=== PATIENT | female | born 1965 | race Caucasian/White ===

== ENCOUNTER 2017-06-08 16:24 | Inpatient (IN) | payer OTHER ==
[2017-06-08 17:39] VITALS: BMI 32.9
--- NOTE | 2017-06-08 18:37 | HP ---
COWS - Scale Resting Pulse: 1= [place] 81-100 Sweatin=Flushed/Facial Moisture Restless Observation: 3= Extraneous Movement Pupil Size: 1= Pupils >than Normal Bone or Joint Aches: 1= Mild Discomfort Runny Nose/ Eye Tearin= Nasal Congestion GI Upset > 30mins: 2= Nausea/Diarrhea Tremor Observation: 2= Slight Tremor Visible Yawning Observation: 1= 1-2x During Session Anxiety or Irritability: 2=Irritable/Anxious Goose Flesh Skin: 3=Piloerection COWS Score: 19 Admission ROS S - HPI Chief Complaint: Withdrawal symptoms Allergies/Adverse Reactions: Allergies Allergy/AdvReac Type Severity Reaction Status Date / Time No Known Allergies Allergy Verified 06/08/17 13:59 History of Present Illness: 51 y.o. woman with a history of heroin and marijuana dependence is here seeking detox. She reports she has not sought rehab or detox services recently. Reports her longest period clean has been 10 years. Exam Limitations: No Limitations - Ebola screening Have you traveled outside of the country in the last 21 days: No Have you had contact with anyone from an Ebola affected area: No Have you been sick,other than usual withdrawal symptoms: No Do you have a fever: No - Review of Systems Constitutional: Chills, Diaphoresis, Loss of Appetite, Changes in sleep, Unintentional Wgt. Loss EENT: reports: Nose Congestion Respiratory: reports: No Symptoms reported Cardiac: reports: No Symptoms Reported GI: reports: Diarrhea, Nausea, Poor Appetite, Vomiting, Abdominal cramping : reports: No Symptoms Reported Musculoskeletal: reports: Back Pain, Joint Pain, Neck Pain Integumentary: reports: No Symptoms Reported Neuro: reports: No Symptoms reported Endocrine: reports: No Symptoms Reported Hematology: reports: Anemia (CINTHYA) Psychiatric: reports: Orientated x3, Anxious, Depressed Other Systems: Reviewed and Negative Patient History - Patient Medical History Hx Anemia: Yes (HX OF CINTHYA ) Hx Asthma: No Hx Chronic Obstructive Pulmonary Disease (COPD): No Hx Cancer: No Hx Cardiac Disorders: No Hx Congestive Heart Failure: No Hx Hypertension: No Hx Hypercholesterolemia: No Hx Pacemaker: No HX Cerebrovascular Accident: No Hx Seizures: No Hx Dementia: No Hx Diabetes: No Hx Gastrointestinal Disorders: No Hx Liver Disease: No Hx Genitourinary Disorders: No Hx Sexually Transmitted Disorders: No Hx Renal Disease (ESRD): No Hx Thyroid Disease: No Hx Human Immunodeficiency Virus (HIV): No Hx Hepatitis C: Yes Hx Depression: Yes Hx Suicide Attempt: No Hx Bipolar Disorder: No Hx Schizophrenia: No - Patient Surgical History Past Surgical History: Yes Hx Neurologic Surgery: No Hx Cataract Extraction: No Hx Cardiac Surgery: No Hx Lung Surgery: No Hx Breast Surgery: No Hx Breast Biopsy: No Hx Abdominal Surgery: Yes Hx Appendectomy: No Hx Cholecystectomy: No Hx Genitourinary Surgery: No Hx Section: No Hx Orthopedic Surgery: Yes (2008:RT LE FX REPAIR; 2016: RT KNEE REPLACEMENT; 2004:CERVIAL SP FUSION ) Anesthesia Reaction: No - PPD History Previous Implant?: Yes Documented Results: Negative w/o proof Implanted On Prior [facility] Admission?: Yes PPD to be Administered?: Yes - Reproductive History Patient is a Female of Child Bearing Age (11 -55 yrs old): Yes Last Menstrual Period: 06/10/15 Patient : No - Smoking Cessation Smoking history: Current every day smoker Have you smoked in the past 12 months: Yes Aproximately how many cigarettes per day: 20 Hx Chewing Tobacco Use: No Initiated information on smoking cessation: Yes 'Breaking Loose' booklet given: 06/08/17 - Substance & Tx. History Hx Alcohol Use: No Hx Substance Use: Yes Substance Use Type: Heroin, Marijuana Hx Substance Use Treatment: Yes (DETOX AND REHAB OVER 10 YEARS AGO ) - Substances Abused Heroin Route: Injection Frequency: Daily Amount used: 10 bags Age of first use: 18 Date of Last Use: 06/08/17 Marijuana/Hashish Route: Smoking Frequency: Daily Amount used: 1 bags Age of first use: 16 Date of Last Use: 06/08/17 Family Disease History - Family Disease History Family Disease History: Diabetes: Mother (CERVIAL CA), Heart Disease: Brother ( LYMPHOMA-DECEAESD ), CA: Brother, Respiratory: Father (LEUKEMIA- ) Admission Physical Exam S - Vital Signs Vital Signs: Vital Signs - 24 hr 06/08/17 17:16 Temperature 97.0 F L Pulse Rate 82 Respiratory 18 Rate Blood Pressure 101/65 - Physical General Appearance: Yes: Disheveled, Anxious HEENTM: Yes: Hearing grossly Normal, Normal ENT Inspection, Normocephalic, Normal Voice Respiratory: Yes: Chest Non-Tender, Lungs Clear, Normal Breath Sounds, No Respiratory Distress, No Accessory Muscle Use Breast: Yes: Breast Exam Deferred Cardiology: Yes: Regular Rhythm, Regular Rate Abdominal: Yes: Non Tender, Flat Genitourinary: Yes: Burning (U/A PENDING) Back: Yes: Normal Inspection Musculoskeletal: Yes: Back pain, Joint Stiffness, Muscle Pain, Other (UNSTEADY GAIT) Extremities: Yes: Normal Inspection, Normal Range of Motion, Non-Tender Neurological: Yes: 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 NML intact, Fully Oriented, Alert, Motor Strength 5/5, Normal Mood/Affect, Normal Response Integumentary: Yes: Normal Color, Dry, Warm Lymphatic: Yes: Within Normal Limits - Diagnostic (1) Uncomplicated opioid dependence Current Visit: Yes Status: Chronic (2) Cannabis dependence, uncomplicated Current Visit: Yes Status: Chronic (3) Osteoarthritis Current Visit: Yes Status: Chronic (4) Unsteady gait Current Visit: Yes Status: Chronic Cleared for Admission [facility] - Detox or Rehab [facility] Level of Care: Medically Managed Detox Regimen/Protocol: Methadone [facility] Breath Alcohol Content Breath Alcohol Content: 0 Urine Pregancy Test - Result Urine Test Results: Negative- NO Line Present Urine Drug Screen - Results Drug Screen Negative: No Urine Drug Screen Results: THC-Marijuana, OPI-Opiates, BZO-Benzodiazepines, MTD- Methadone, TCA-Tricyclic Antidepress, OXY-Oxycodone
[2017-06-08] MEDS ORDERED: MAGNESIUM CITRATE 300 ML BOTTLE PO PRN (18:53)
[2017-06-08] MEDS ORDERED: MAGNESIUM HYDROX 2400MG/30ML ORAL SUSPENSION 30 ML CUP PO PRN (18:53)
[2017-06-08] MEDS ORDERED: LOPERAMIDE HCL 2 MG CAPSULE PO PRN (18:53)
[2017-06-08] MEDS ORDERED: ACETAMINOPHEN 325 MG TABLET (FP) PO PRN (18:53)
[2017-06-08] MEDS ORDERED: METHADONE HCL 10 MG TABLET (FOR DETOX USE ONLY) PO ONE ×2 (18:53→23:00)
[2017-06-08] MEDS ORDERED: NICOTINE POLACRILEX 2 MG GUM BUC PRN (18:53)
[2017-06-08] MEDS ORDERED: diphenhydrAMINE HCL 50 MG CAPSULE PO PRN (18:53)
[2017-06-08] MEDS ORDERED: hydrOXYzine PAMOATE 50 MG CAPSULE (FP) PO PRN (18:53)
[2017-06-08] MEDS ORDERED: P-EPHED 60MG/TRIPROLIDI 2.5MG TABLET PO PRN (18:53)
[2017-06-08] MEDS ORDERED: MENTHOL/PHENOL 1 EACH UD MM PRN (18:53)
[2017-06-08] MEDS ORDERED: guaiFENesin/D-METHORPHAN HB 10 ML UNIT-DOSE CUPS PO PRN (18:53)
[2017-06-08] MEDS ORDERED: MAG HYDROX/AL HYDROX/SIMETH 30 ML UNIT-DOSE CUP PO PRN (18:53)
[2017-06-08] MEDS: diazePAM 5 MG TABLET PO PRN (19:30)
[2017-06-08] MEDS: THIAMINE HCL 100 MG TABLET (FP) PO SCH (22:05)
[2017-06-08 23:29] LABS: URINE APPEARANCE SLCLOUDY; URINE BILIRUBIN NEGATIVE (NEGATIVE); URINE BLOOD NEGATIVE (NEGATIVE); URINE COLOR YELLOW; URINE GLUCOSE (UA) NEGATIVE (NEGATIVE); URINE KETONE NEGATIVE (NEGATIVE); URINE LEUK ESTERASE NEGATIVE (NEGATIVE); URINE NITRITE NEGATIVE (NEGATIVE); URINE UROBILINOGEN NEGATIVE mg/dL (0.2-1.0)
[2017-06-08 23:30] LABS: URINE PROTEIN 1+ (NEGATIVE)
[2017-06-09 00:57] LABS: URINE BACTERIA RARE /hpf (NONE SEEN); URINE HYALINE CAST 2 /lpf; URINE MUCUS MODERATE; URINE RBC <1 /hpf (0-3); URINE WBC 2 /hpf (3-5)
[2017-06-09] MEDS: IBUPROFEN 400 MG TABLET (FP) PO PRN (08:24)
--- NOTE | 2017-06-09 09:11 | CONSULT ---
[facility] Psychiatric Consult - Data Date of interview: 06/09/17 Admission source: This is 51 years old female with Identifying data: This is 51 years old female with no psychiatric hospitalization history intoxicated with: Op[ioids, Cannabis and Nicotine Substance Abuse History: - Smoking Cessation. Smoking history: Current every day smoker. Have you smoked in the past 12 months: Yes. Aproximately how many cigarettes per day: 20. Hx Chewing Tobacco Use: No. Initiated information on smoking cessation: Yes. 'Breaking Loose' booklet given: 06/08/17. - Substance & Tx. History. Hx Alcohol Use: No. Hx Substance Use: Yes. Substance Use Type : Heroin, Marijuana. Hx Substance Use Treatment: Yes (DETOX AND REHAB OVER 10 YEARS AGO ). - Substances Abused. Heroin. Route: Injection. Frequency: Daily. Amount used: 10 bags. Age of first use: 18. Date of Last Use: . Marijuana/Hashish. Route: Smoking. Frequency: Daily. Amount used: 1 bags. Age of first use: 16. Date of Last Use: 06/08/17 Medical History: Osteoarthritis Psychiatric History: Patient reports history of mdepression and anxiety, preoccupied with insomnia, reports taking Seroquel 150mg po qhs prior to admission with good response Physical/Sexual Abuse/Trauma History: Denies Additional Comment: Seroquel 150mg po qhs Mental Status Exam - Mental Status Exam Alert and Oriented to: Person Cognitive Function: Fair Patient Appearance: Unkempt Mood: Anxious Affect: Flat Patient Behavior: Cooperative Speech Pattern: Appropriate Voice Loudness: Normal Thought Process: Goal Oriented Thought Disorder: Being Controlled Hallucinations: Denies Suicidal Ideation: Denies Homicidal Ideation: Denies Insight/Judgement: Fair Sleep: Difficulty falling asleep Appetite: Weight gain Muscle strength/Tone: Normal Gait/Station: Deferred Additional Comments: Seroquel 150mg po qhs Psychiatric Findings - Problem List ([place] 1, 2,3) (1) Cannabis dependence, uncomplicated Current Visit: Yes Status: Chronic (2) Uncomplicated opioid dependence Current Visit: Yes Status: Chronic (3) Unsteady gait Current Visit: Yes Status: Chronic (4) Heroin abuse Current Visit: No Status: Acute (5) Opioid dependence with withdrawal Current Visit: No Status: Acute (6) Drug-induced mood disorder Current Visit: Yes Status: Acute - Initial Treatment Plan Initial Treatment Plan: Seroquel 150mg po qhs
--- NOTE | 2017-06-09 09:19 | PN ---
BHS COWS - Scale Resting Pulse: 0= [place] 80 or Below Sweatin=Flushed/Facial Moisture Restless Observation: 3= Extraneous Movement Pupil Size: 1= Pupils >than Normal Bone or Joint Aches: 2= Severe Diffuse Aches Runny Nose/ Eye Tearin= Runny Nose/Eyes GI Upset > 30mins: 2= Nausea/Diarrhea Tremor Observation of Outstretched Hands: 2= Slight Tremor Visible Yawning Observation: 1= 1-2x During Session Anxiety or Irritability: 2=Irritable/Anxious Goose Flesh Skin: 0=Smooth Skin COWS Score: 17 BHS Progress Note (SOAP) Subjective: alert,irritable,anxious,interrupted sleep,tremor,pain in the body and back Objective: 06/09/17 09:17 Vital Signs Temperature 98.2 F 06/09/17 06:22 Pulse Rate 71 06/09/17 06:22 Respiratory Rate 16 06/09/17 06:22 Blood Pressure 103/62 06/09/17 06:22 O2 Sat by Pulse Oximetry (%) ekg nsr no chest pain,no sob,no dizziness 06/09/17 09:18 06/09/17 09:28 labs pending Assessment: 06/09/17 09:18 withdrawal symptom Plan: continue detox
[2017-06-09] MEDS ORDERED: METHADONE HCL 10 MG TABLET (FOR DETOX USE ONLY) PO ONE (10:00)
[2017-06-09] MEDS: NICOTINE 21 MG/24 HOURS TOPICAL PATCH TD SCH (10:09)
[2017-06-09] MEDS: PRENATAL VITAMINS W/ FOLIC ACID TABLET (FP) PO SCH (10:09)
[2017-06-09] MEDS: diazePAM 5 MG TABLET PO PRN ×2 (10:10→22:03)
--- NOTE | 2017-06-09 12:50 | EKG ---
Test Reason : Blood Pressure : / mmHG Vent. Rate : 089 BPM Atrial Rate : 089 BPM P-R Int : 152 ms QRS Dur : 078 ms QT Int : 384 ms P-R-T Axes : 060 -05 023 degrees QTc Int : 467 ms NORMAL SINUS RHYTHM LOW VOLTAGE QRS BORDERLINE ECG NO PREVIOUS ECGS AVAILABLE Confirmed by LUPE PARTIDA, GIA ([id number]) on 06/09/2017 12:49:57 PM Referred By: SADIQ Ann Confirmed By:GIA ANDRADE MD
[2017-06-09] MEDS: QUEtiapine FUMARATE 50 MG TABLET PO SCH (22:04)
[2017-06-09] MEDS: THIAMINE HCL 100 MG TABLET (FP) PO SCH (22:05)
--- NOTE | 2017-06-10 09:35 | PN ---
BHS COWS - Scale Resting Pulse: 2= [place] 101-120 Sweatin= Chills/Flushing Restless Observation: 3= Extraneous Movement Pupil Size: 1= Pupils >than Normal Bone or Joint Aches: 2= Severe Diffuse Aches Runny Nose/ Eye Tearin= Runny Nose/Eyes GI Upset > 30mins: 2= Nausea/Diarrhea Tremor Observation of Outstretched Hands: 2= Slight Tremor Visible Yawning Observation: 1= 1-2x During Session Anxiety or Irritability: 2=Irritable/Anxious Goose Flesh Skin: 0=Smooth Skin COWS Score: 18 BHS Progress Note (SOAP) Subjective: ALERT,IRRITABLE,ANXIOUS,INTERRUPTED SLEEP,TREMOR,PAIN IN THE BODY AND BACK Objective: 06/10/17 09:30 Vital Signs Temperature 97 F L 06/10/17 09:21 Pulse Rate 107 H 06/10/17 09:21 Respiratory Rate 18 06/10/17 09:21 Blood Pressure 128/75 06/10/17 09:21 O2 Sat by Pulse Oximetry (%) 06/10/17 09:30 Laboratory Last Values Urine Color Yellow 06/08/17 20:48 Urine Appearance Slcloudy 06/08/17 20:48 Urine pH 5.0 (5.0-8.0) 06/08/17 20:48 Ur Specific [place] >= 1.030 (1.005-1.025) H 06/08/17 20:48 Urine Protein 1+ (NEGATIVE) H 06/08/17 20:48 Urine Glucose (UA) Negative (NEGATIVE) 06/08/17 20:48 Urine Ketones Negative (NEGATIVE) 06/08/17 20:48 Urine Blood Negative (NEGATIVE) 06/08/17 20:48 Urine Nitrite Negative (NEGATIVE) 06/08/17 20:48 Urine Bilirubin Negative (NEGATIVE) 06/08/17 20:48 Urine Urobilinogen Negative mg/dL (0.2-1.0) 06/08/17 20:48 Ur Leukocyte Esterase Negative (NEGATIVE) 06/08/17 20:48 Urine RBC <1 /hpf (0-3) 06/08/17 20:48 Urine WBC 2 /hpf (3-5) 06/08/17 20:48 Ur Epithelial Cells Few /hpf (FEW) 06/08/17 20:48 Urine Bacteria Rare /hpf (NONE SEEN) 06/08/17 20:48 Hyaline Casts 2 /lpf 06/08/17 20:48 Urine Mucus Moderate 06/08/17 20:48 06/10/17 09:31 Assessment: 06/10/17 09:31 WITHDRAWAL SYMPTOM Plan: CONTINUE DETOX
[2017-06-10] MEDS ORDERED: METHADONE HCL 5 MG TABLET (FOR DETOX USE ONLY) PO ONE (10:00)
[2017-06-10] MEDS: PRENATAL VITAMINS W/ FOLIC ACID TABLET (FP) PO SCH (10:09)
[2017-06-10] MEDS: NICOTINE 21 MG/24 HOURS TOPICAL PATCH TD SCH (10:09)
[2017-06-10] MEDS: diazePAM 5 MG TABLET PO PRN ×2 (10:12→22:16)
[2017-06-10] MEDS: IBUPROFEN 400 MG TABLET (FP) PO PRN ×2 (11:35→20:46)
[2017-06-10] MEDS: QUEtiapine FUMARATE 50 MG TABLET PO SCH (22:13)
[2017-06-10] MEDS: THIAMINE HCL 100 MG TABLET (FP) PO SCH (22:13)
--- NOTE | 2017-06-11 08:59 | PN ---
S Progress Note (SOAP) Subjective: alert,no complaining Objective: 06/11/17 08:59 Vital Signs Temperature 97.1 F L 06/11/17 06:18 Pulse Rate 47 L 06/11/17 06:18 Respiratory Rate 16 06/11/17 06:18 Blood Pressure 108/73 06/11/17 08:31 O2 Sat by Pulse Oximetry (%) Assessment: 06/11/17 08:59 patient is stable,no withdrawal symptom 06/11/17 09:02 Plan: discharge today,follow up with after care program as arrangement,patient did not want any blood test due to difficulty unable to be obtained by telephone sex worker
[2017-06-11] MEDS ORDERED: METHADONE HCL 10 MG TABLET (FOR DETOX USE ONLY) PO ONE (09:01)
--- NOTE | 2017-06-11 09:09 | DS ---
[facility] Detox Discharge Summary Admission Date: 06/08/17 Discharge Date: 06/11/17 - History Present History: Cannabis Dependence, Opioid Dependence Additional Comments: follow up with after care program as arrangement Pertinent Past History: osteoarthritis - Physical Exam Results Vital Signs: Vital Signs Temperature 97.1 F L 06/11/17 06:18 Pulse Rate 47 L 06/11/17 06:18 Respiratory Rate 16 06/11/17 06:18 Blood Pressure 108/73 06/11/17 08:31 O2 Sat by Pulse Oximetry (%) Pertinent Admission Physical Exam Findings: withdrawal symptom - Treatment Hospital Course: Detox Protocol Followed, Detoxed Safely, Responded well, Discharged Condition Good Patient has Accepted a Rehab Referral to: declined - Medication Discharge Medications: Ambulatory Orders Diazepam 10 mg PO AM 06/08/17 Diazepam 20 mg PO HS 06/08/17 Ibuprofen [Motrin -] 800 mg PO PRN PRN 06/08/17 Quetiapine Fumarate [Seroquel] 150 mg PO HS 06/08/17 Quetiapine Fumarate [Seroquel] 150 mg PO HS #30 tab 06/09/17 - Diagnosis (1) Cannabis dependence, uncomplicated Current Visit: Yes Status: Chronic (2) Osteoarthritis Current Visit: Yes Status: Chronic (3) Uncomplicated opioid dependence Current Visit: Yes Status: Chronic (4) Opioid dependence with withdrawal Current Visit: No Status: Acute - AMA Did Patient Leave Against Medical Advice: No
[2017-06-11] MEDS: PRENATAL VITAMINS W/ FOLIC ACID TABLET (FP) PO SCH (09:21)
[2017-06-11] MEDS ORDERED: METHADONE HCL 5 MG TABLET (FOR DETOX USE ONLY) PO ONE (10:00)
[2017-06-11 10:36] VITALS: BP 106/74; PULSE 116; TEMP 97.3
[2017-06-12] MEDS ORDERED: METHADONE HCL 10 MG TABLET (FOR DETOX USE ONLY) PO ONE (10:00)
[2017-06-13] MEDS ORDERED: METHADONE HCL 5 MG TABLET (FOR DETOX USE ONLY) PO ONE (06:00)
== END 2017-06-11 09:35 | disposition home or self-care (01) | DRG 897 ==
LOC: YASAS 16:24 → Y6N 18:02
PROVIDERS: ADMIT Internal Medicine; ATTEND Surgery
PROC: HZ2ZZZZ Detoxification Services for Substance Abuse Treatment (ICD-10-PCS; principal; 2017-06-08)
DX: F11.23 Opioid dependence with withdrawal (principal); F12.20 Cannabis dependence, uncomplicated; F17.210 Nicotine dependence, cigarettes, uncomplicated; F19.24 Other psychoactive substance dependence with psychoactive substance-induced mood disorder; M19.90 Unspecified osteoarthritis, unspecified site; R26.81 Unsteadiness on feet; Z86.2 Personal history of diseases of the blood and blood-forming organs and certain disorders involving the immune mechanism; Z96.651 Presence of right artificial knee joint
CPT/HCPCS: 81003; 81015; 93005; 93010; 99282-25

== ENCOUNTER 2017-07-12 13:39 | Inpatient (IN) | payer OTHER ==
[2017-07-12 14:14] VITALS: BMI 31.8
--- NOTE | 2017-07-12 17:35 | HP ---
COWS - Scale Resting Pulse: 4= [place] > 121 Sweatin= Chills/Flushing Restless Observation: 0= Sits Still Pupil Size: 0= Normal to Room Light Bone or Joint Aches: 2= Severe Diffuse Aches Runny Nose/ Eye Tearin= Runny Nose/Eyes GI Upset > 30mins: 3= Vomiting/Diarrhea Tremor Observation: 2= Slight Tremor Visible Yawning Observation: 0= None Anxiety or Irritability: 2=Irritable/Anxious Goose Flesh Skin: 0=Smooth Skin COWS Score: 16 Admission ROS S - HPI Chief Complaint: withdrawal sx Allergies/Adverse Reactions: Allergies Allergy/AdvReac Type Severity Reaction Status Date / Time No Known Allergies Allergy Verified 07/12/17 16:00 History of Present Illness: 51 years old female with long history of opiate nicotine dependence, denies medical issue has anxiety is admitted to detox Exam Limitations: No Limitations - Ebola screening Have you traveled outside of the country in the last 21 days: No (N) Have you had contact with anyone from an Ebola affected area: No Have you been sick,other than usual withdrawal symptoms: No Do you have a fever: No - Review of Systems Constitutional: Changes in sleep, Weight Stable EENT: reports: Dental Problems (upper and lower teeth missing has both dentures) Respiratory: reports: SOB with Exertion Cardiac: reports: No Symptoms Reported GI: reports: Nausea, Poor Fluid Intake, Vomiting, Indigestion, Abdominal cramping : reports: No Symptoms Reported Integumentary: reports: Change in Color (hands) Neuro: reports: Seizure (age 20's cocaine withdrawal related), Tremors Endocrine: reports: No Symptoms Reported Hematology: reports: No Symptoms Reported Psychiatric: reports: Judgement Intact, Orientated x3, Anxious, Depressed Other Systems: Reviewed and Negative Patient History - Patient Medical History Hx Anemia: No (HX OF CINTHYA ) Hx Asthma: No Hx Chronic Obstructive Pulmonary Disease (COPD): No Hx Cancer: No Hx Cardiac Disorders: No Hx Congestive Heart Failure: No Hx Hypertension: No Hx Hypercholesterolemia: No Hx Pacemaker: No HX Cerebrovascular Accident: No Hx Seizures: Yes (age 20's last episode) Hx Dementia: No Hx Diabetes: No Hx Gastrointestinal Disorders: No Hx Liver Disease: No Hx Genitourinary Disorders: No Hx Sexually Transmitted Disorders: No Hx Renal Disease (ESRD): No Hx Thyroid Disease: No Hx Human Immunodeficiency Virus (HIV): No Hx Hepatitis C: Yes Hx Depression: Yes Hx Suicide Attempt: No Hx Bipolar Disorder: No Hx Schizophrenia: No - Patient Surgical History Past Surgical History: Yes Hx Neurologic Surgery: No Hx Cataract Extraction: No Hx Cardiac Surgery: No Hx Lung Surgery: No Hx Breast Surgery: No Hx Breast Biopsy: No Hx Abdominal Surgery: Yes (LACERATED SPLEEN-2008) Hx Appendectomy: No Hx Cholecystectomy: Yes (2012) Hx Genitourinary Surgery: No Hx Section: No Hx Orthopedic Surgery: Yes (2008:RT LE FX REPAIR; 2015: RT KNEE REPLACEMENT; 2004:CERVIAL SP FUSION ) Hx Hysterectomy: No Anesthesia Reaction: No - PPD History Previous Implant?: Yes Documented Results: Positive w/proof Implanted On Prior R Admission?: Yes Date: 06/10/17 PPD to be Administered?: No - Reproductive History Patient is a Female of Child Bearing Age (11 -55 yrs old): Yes Last Menstrual Period: 07/12/14 Patient : No - Smoking Cessation Smoking history: Current every day smoker Have you smoked in the past 12 months: Yes Aproximately how many cigarettes per day: 20 Cigars Per Day: 0 Hx Chewing Tobacco Use: No Initiated information on smoking cessation: Yes 'Breaking Loose' booklet given: 07/12/17 - Substance & Tx. History Hx Alcohol Use: No Hx Substance Use: Yes Substance Use Type: Heroin, Opiates, Tranquilizers Hx Substance Use Treatment: Yes (06/2017 [facility]) - Substances Abused Heroin Route: Injection Frequency: Daily Amount used: 4-5 BAGS Age of first use: 17 Date of Last Use: 07/12/17 Marijuana/Hashish Route: Smoking Frequency: Daily Amount used: $5 Age of first use: 12 Date of Last Use: 07/11/17 Family Disease History - Family Disease History Family Disease History: Diabetes: Mother (CERVIAL CA), Heart Disease: Brother ( LY[place]-DECEAESD ), CA: Brother, Respiratory: Father (LEUKEMIA- ) Admission Physical Exam BHS - Vital Signs Vital Signs: Vital Signs - 24 hr 07/12/17 14:10 Temperature 100 F H Pulse Rate 121 H Respiratory 20 Rate Blood Pressure 110/61 - Physical General Appearance: Yes: Appropriately Dressed, Moderate Distress, Obese, Tremorous, Irritable, Sweating, Anxious HEENTM: Yes: Hearing grossly Normal, Normal ENT Inspection, Normocephalic, Normal Voice Respiratory: Yes: Chest Non-Tender, Lungs Clear, Normal Breath Sounds, No Respiratory Distress, No Accessory Muscle Use Neck: Yes: Supple, Trachea in good position Breast: Yes: Breasts Symetrical Cardiology: Yes: Regular Rhythm, S1, S2, Tachycardia Abdominal: Yes: Non Tender, Soft Genitourinary: Yes: Within Normal Limits Back: Yes: Normal Inspection Musculoskeletal: Yes: Gait Steady, Joint swelling (right ankles), Muscle Pain Extremities: Yes: Non-Tender, Tremors, Swelling (right ankles) Neurological: Yes: Fully Oriented, Alert, Normal Response, Depressed Affect Integumentary: Yes: Warm, Track Will Lymphatic: Yes: Within Normal Limits - Diagnostic (1) Opioid dependence with withdrawal Current Visit: Yes Status: Acute (2) Unsteady gait Current Visit: Yes Status: Chronic Comment: 2008 (3) Sedative, hypnotic or anxiolytic dependence, uncomplicated Current Visit: Yes Status: Acute Cleared for Admission [facility] - Detox or Rehab [facility] Level of Care: Medically Managed Detox Regimen/Protocol: Methadone/Valium [facility] Breath Alcohol Content Breath Alcohol Content: 0 Urine Pregancy Test - Result Urine Test Results: Negative- NO Line Present Urine Drug Screen - Results Drug Screen Negative: No Urine Drug Screen Results: THC-Marijuana, OPI-Opiates, BZO-Benzodiazepines, MTD- Methadone, TCA-Tricyclic Antidepress, OXY-Oxycodone
[2017-07-12] MEDS ORDERED: diphenhydrAMINE HCL 50 MG CAPSULE PO PRN (17:48)
[2017-07-12] MEDS ORDERED: MENTHOL/PHENOL 1 EACH UD MM PRN (17:48)
[2017-07-12] MEDS ORDERED: diazePAM 5 MG TABLET PO ONE (17:48)
[2017-07-12] MEDS ORDERED: METHADONE HCL 10 MG TABLET (FOR DETOX USE ONLY) PO ONE ×2 (17:48→23:00)
[2017-07-12] MEDS ORDERED: ACETAMINOPHEN 325 MG TABLET (FP) PO PRN (17:48)
[2017-07-12] MEDS ORDERED: guaiFENesin/D-METHORPHAN HB 10 ML UNIT-DOSE CUPS PO PRN (17:48)
[2017-07-12] MEDS ORDERED: P-EPHED 60MG/TRIPROLIDI 2.5MG TABLET PO PRN (17:48)
[2017-07-12] MEDS ORDERED: MAG HYDROX/AL HYDROX/SIMETH 30 ML UNIT-DOSE CUP PO PRN (17:48)
[2017-07-12] MEDS ORDERED: MAGNESIUM HYDROX 2400MG/30ML ORAL SUSPENSION 30 ML CUP PO PRN (17:48)
[2017-07-12] MEDS ORDERED: NICOTINE POLACRILEX 4 MG GUM BUC PRN (17:48)
[2017-07-12] MEDS ORDERED: LOPERAMIDE HCL 2 MG CAPSULE PO PRN (17:48)
[2017-07-12] MEDS ORDERED: MAGNESIUM CITRATE 300 ML BOTTLE PO PRN (17:48)
[2017-07-12 19:58] LABS: URINE APPEARANCE CLOUDY; URINE BILIRUBIN NEGATIVE (NEGATIVE); URINE BLOOD NEGATIVE (NEGATIVE); URINE COLOR YELLOW; URINE GLUCOSE (UA) NEGATIVE (NEGATIVE); URINE KETONE NEGATIVE (NEGATIVE); URINE NITRITE NEGATIVE (NEGATIVE); URINE UROBILINOGEN NEGATIVE mg/dL (0.2-1.0)
[2017-07-12 19:59] LABS: URINE LEUK ESTERASE 1+ (NEGATIVE); URINE PROTEIN 1+ (NEGATIVE)
[2017-07-12 20:03] LABS: URINE BACTERIA RARE /hpf (NONE SEEN); URINE HYALINE CAST 3 /lpf; URINE MUCUS MANY; URINE RBC <1 /hpf (0-3); URINE WBC 3 /hpf (3-5)
[2017-07-12] MEDS: THIAMINE HCL 100 MG TABLET (FP) PO SCH (22:01)
[2017-07-12] MEDS: diazePAM 5 MG TABLET PO SCH (22:02)
[2017-07-13] MEDS: diazePAM 5 MG TABLET PO SCH ×3 (05:40→22:02)
[2017-07-13] MEDS ORDERED: METHADONE HCL 10 MG TABLET (FOR DETOX USE ONLY) PO SCH (10:00)
[2017-07-13 10:13] LABS: MCH 28.6 pg (25.7-33.7); MCHC 31.8 g/dl (32.0-36.0); MEAN CELL VOLUME 90.1 fl (80-96); PLATELET COUNT 296 K/MM3 (134-434); RDW 15.1 % (11.6-15.6); WHITE BLOOD COUNT 18.6 K/mm3 (4.0-10.0)
[2017-07-13] MEDS: PRENATAL VITAMINS W/ FOLIC ACID TABLET (FP) PO SCH (10:14)
[2017-07-13] MEDS: NICOTINE 21 MG/24 HOURS TOPICAL PATCH TD SCH (10:16)
[2017-07-13] MEDS ORDERED: IBUPROFEN 400 MG TABLET (FP) PO PRN ×2 (10:17→12:23)
[2017-07-13 10:39] LABS: HIV 1 & 2 AB NEGATIVE; HIV 1 AGp24 NEGATIVE
--- NOTE | 2017-07-13 10:47 | PN ---
BHS COWS - Scale Resting Pulse: 1= [place] 81-100 Sweatin=Flushed/Facial Moisture Restless Observation: 1= Difficult to Sit Still Pupil Size: 0= Normal to Room Light Bone or Joint Aches: 1= Mild Discomfort Runny Nose/ Eye Tearin= Runny Nose/Eyes GI Upset > 30mins: 0= None Tremor Observation of Outstretched Hands: 2= Slight Tremor Visible Yawning Observation: 1= 1-2x During Session Anxiety or Irritability: 2=Irritable/Anxious Goose Flesh Skin: 0=Smooth Skin COWS Score: 12 BHS Progress Note (SOAP) Subjective: I coughed up some phlegm with little blood but I smoke so much sweats agitation shakes Objective: 07/13/17 10:48 Vital Signs Temperature 98.1 F 07/13/17 06:00 Pulse Rate 84 07/13/17 06:00 Respiratory Rate 18 07/13/17 06:00 Blood Pressure 106/67 07/13/17 06:00 O2 Sat by Pulse Oximetry (%) Laboratory Tests 07/12/17 07/13/17 07/13/17 16:30 07:00 07:00 WBC 18.6 H RBC 3.89 Hgb 11.1 Hct 35.0 MCV 90.1 MCH 28.6 MCHC 31.8 L RDW 15.1 Plt Count 296 MPV 8.0 Urine Color Yellow Urine Appearance Cloudy Urine pH 5.0 Ur Specific [place] 1.020 Urine Protein 1+ H Urine Glucose (UA) Negative Urine Ketones Negative Urine Blood Negative Urine Nitrite Negative Urine Bilirubin Negative Urine Urobilinogen Negative Ur Leukocyte Esterase 1+ H Urine RBC <1 Urine WBC 3 Ur Epithelial Cells Many Urine Bacteria Rare Hyaline Casts 3 Urine Mucus Many RPR Titer HIV 1&2 Antibody Screen Negative HIV P24 Antigen Negative 07/13/17 07:00 WBC RBC Hgb Hct MCV MCH MCHC RDW Plt Count MPV Urine Color Urine Appearance Urine pH Ur Specific [place] Urine Protein Urine Glucose (UA) Urine Ketones Urine Blood Urine Nitrite Urine Bilirubin Urine Urobilinogen Ur Leukocyte Esterase Urine RBC Urine WBC Ur Epithelial Cells Urine Bacteria Hyaline Casts Urine Mucus RPR Titer Nonreactive HIV 1&2 Antibody Screen HIV P24 Antigen awake/alert ambulating no acute distress labs pending Assessment: 07/13/17 10:58 withdrawal sx Plan: continue detox increase fluids chest x-ray ordered encouraged to stay away any red juices labs pending
[2017-07-13 10:59] LABS: ALBUMIN 2.8 g/dl (3.4-5.0); ANION GAP 7 (8-16); CALCIUM 8.2 mg/dL (8.5-10.1); CO2 27 mmol/L (21-32); CREATININE 1.5 mg/dL (0.55-1.02); GLUCOSE,RANDOM 95 mg/dL (74-106); SGOT/AST 18 U/L (15-37); SGPT/ALT 19 U/L (12-78)
[2017-07-13 11:02] LABS: ALK PHOS 112 U/L (45-117); BILIRUBIN,TOTAL 0.3 mg/dL (0.2-1.0); TOT PROT 6.5 g/dl (6.4-8.2)
[2017-07-13] MEDS: cloNIDine HCL 0.1 MG TABLET PO SCH ×2 (12:00→22:03)
--- NOTE | 2017-07-13 17:03 | CONSULT ---
[facility] Psychiatric Consult - Data Date of interview: 07/13/17 Admission source: [facility] Identifying data: Readmission to [facility] for this 51 y/o female seeking detox treatment on for heroin,benzodiazepine and marihuana dependence.Patient is ,a mother of two,domiciled,unemployed and supported on Disability benefits. Substance Abuse History: Discussed in this interview.Patient confirms this report. Smoking Cessation. Smoking history: Current every day smoker. Have you smoked in the past 12 months: Yes. Aproximately how many cigarettes per day : 20. Cigars Per Day: 0. Hx Chewing Tobacco Use: No. Initiated information on smoking cessation: Yes. 'Breaking Loose' booklet given: 07/12/17. - Substance & Tx. History. Hx Alcohol Use: No. Hx Substance Use: Yes. Substance Use Type: Heroin, Opiates, Tranquilizers. Hx Substance Use Treatment : Yes (06/2017 [facility]). - Substances Abused. Heroin. Route: Injection. Frequency: Daily. Amount used: 4-5 BAGS. Age of first use: 17. Date of Last Use: 07/12/17. Marijuana/Hashish. Route: Smoking. Frequency: Daily. Amount used: $5. Age of first use: 12. Date of Last Use: 07/11/17 Medical History: Significant for multiple co-morbidities : anemia,remote history of seizures,hepatitis C,cervical spine fusion (2004),lower back pain, osteoarthritis,right knee replacement (2015),abdominal surgery (lacerated spleen in 2008),orthosurgery on right leg (hardware in situ) and antecedent of MERSA two years ago. Psychiatric History: No reported history of psychiatric hospitalizations.Patient reports that she is currently under the care of a private psychiatrist in [facility] in the [facility].Diagnosed with MDD and Anxiety Disorder.Prescribed seroquel 150 mg/hs.No history of suicide attempts. Physical/Sexual Abuse/Trauma History: Patient denies history of sexual abuse. Additional Comment: Urine Drug Screen Results: THC-Marijuana, OPI-Opiates, BZO- Benzodiazepines, MTD-Methadone, TCA-Tricyclic Antidepress, OXY-Oxycodone.Noted. Mental Status Exam - Mental Status Exam Alert and Oriented to: Time, Place, Person Cognitive Function: Good Patient Appearance: Well Groomed Mood: Nervous, Anxious Affect: Mood Congruent Patient Behavior: Appropriate, Cooperative Speech Pattern: Clear, Appropriate Voice Loudness: Normal Thought Process: Intact, Goal Oriented Thought Disorder: Not Present Hallucinations: Denies Suicidal Ideation: Denies Homicidal Ideation: Denies Insight/Judgement: Poor Sleep: Poorly, Difficulty falling asleep Appetite: Fair Gait/Station: Other (ambulates with a limp) Psychiatric Findings - Problem List ([place] 1, 2,3) (1) Opioid dependence with withdrawal Current Visit: Yes Status: Acute (2) Sedative, hypnotic or anxiolytic dependence, uncomplicated Current Visit: Yes Status: Acute (3) Cannabis dependence, uncomplicated Current Visit: Yes Status: Acute (4) Drug-induced mood disorder Current Visit: Yes Status: Acute (5) Unsteady gait Current Visit: Yes Status: Chronic Comment: 2009 (6) Osteoarthritis Current Visit: Yes Status: Chronic Qualifiers: Osteoarthritis location: foot Osteoarthritis type: unspecified Laterality: right Qualified Code(s): M19.071 - Primary osteoarthritis, right ankle and foot (7) Insomnia Current Visit: Yes Status: Acute - Initial Treatment Plan Initial Treatment Plan: Psychoeducation.Detoxification.Seroquel 100 mg po hs ( reduced now : to be titrated later if no oversedation in next 24 hours).Side effects/benefits are discussed with patient.She is in agreement with this careplan.Observation.
--- NOTE | 2017-07-13 18:29 | EKG ---
Test Reason : Blood Pressure : / mmHG Vent. Rate : 089 BPM Atrial Rate : 089 BPM P-R Int : 162 ms QRS Dur : 078 ms QT Int : 388 ms P-R-T Axes : 061 -06 031 degrees QTc Int : 472 ms NORMAL SINUS RHYTHM LOW VOLTAGE QRS BORDERLINE ECG WHEN COMPARED WITH ECG OF 08-JUN-2017 18:36, NO SIGNIFICANT CHANGE WAS FOUND Confirmed by ISRAEL PRESTON MD ([id number]) on 07/13/2017 6:28:35 PM Referred By: Confirmed By:ISRAEL PRESTON MD
[2017-07-13] MEDS: QUEtiapine FUMARATE 100 MG TABLET (FP) PO SCH (22:01)
[2017-07-13] MEDS: THIAMINE HCL 100 MG TABLET (FP) PO SCH (22:02)
--- NOTE | 2017-07-14 09:11 | PN ---
[facility] CIWA - CIWA Score Nausea/Vomitin Muscle Tremors: 4-Moderate,w/Arms Extend Anxiety: 3 Agitation: 4-Moderately Restless Paroxysmal Sweats: 3 Orientation: 0-Oriented Tacttile Disturbances: 0-None Auditory Disturbances: 0-None Visual Disturbances: 0-None Headache: 0-None Present CIWA-Ar Total Score: 17 [facility] COWS - Scale Resting Pulse: 1= [place] 81-100 Sweatin= Chills/Flushing Restless Observation: 1= Difficult to Sit Still Pupil Size: 1= Pupils >than Normal Bone or Joint Aches: 1= Mild Discomfort Runny Nose/ Eye Tearin= Nasal Congestion GI Upset > 30mins: 2= Nausea/Diarrhea Tremor Observation of Outstretched Hands: 1= Tremor [place], Not Seen Yawning Observation: 1= 1-2x During Session Anxiety or Irritability: 2=Irritable/Anxious Goose Flesh Skin: 3=Piloerection COWS Score: 15 [facility] Progress Note (SOAP) Subjective: nausea, sweats, interrupetd sleee, anxiety, tremors, no SOB, yesterday coughed blood tinged sputum, c/o lower abdominal pain thinks she has a UTI was treated for U[facility] month. Objective: 07/14/17 09:08 Vital Signs - 24 hr 07/13/17 07/13/17 07/13/17 10:53 14:18 18:08 Temperature 98.1 F 98.1 F 98.2 F Pulse Rate 88 83 71 Respiratory 18 18 16 Rate Blood Pressure 113/67 129/70 91/43 07/13/17 07/14/17 07/14/17 21:13 00:30 05:46 Temperature 97.9 F 97.7 F Pulse Rate 80 60 Respiratory 18 18 16 Rate Blood Pressure 103/64 96/51 Laboratory Tests 07/12/17 07/13/17 07/13/17 16:30 07:00 07:00 WBC 18.6 H RBC 3.89 Hgb 11.1 Hct 35.0 MCV 90.1 MCH 28.6 MCHC 31.8 L RDW 15.1 Plt Count 296 MPV 8.0 Sodium Potassium Chloride Carbon Dioxide Anion Gap BUN Creatinine Creat Clearance w eGFR Random Glucose Calcium Total Bilirubin AST ALT Alkaline Phosphatase Total Protein Albumin Urine Color Yellow Urine Appearance Cloudy Urine pH 5.0 Ur Specific [place] 1.020 Urine Protein 1+ H Urine Glucose (UA) Negative Urine Ketones Negative Urine Blood Negative Urine Nitrite Negative Urine Bilirubin Negative Urine Urobilinogen Negative Ur Leukocyte Esterase 1+ H Urine RBC <1 Urine WBC 3 Ur Epithelial Cells Many Urine Bacteria Rare Hyaline Casts 3 Urine Mucus Many RPR Titer HIV 1&2 Antibody Screen Negative HIV P24 Antigen Negative 07/13/17 07/13/17 07:00 07:00 WBC RBC Hgb Hct MCV MCH MCHC RDW Plt Count MPV Sodium 142 Potassium 3.7 Chloride 108 H Carbon Dioxide 27 Anion Gap 7 L BUN 15 Creatinine 1.5 H Creat Clearance w eGFR 36.61 Random Glucose 95 Calcium 8.2 L Total Bilirubin 0.3 AST 18 ALT 19 Alkaline Phosphatase 112 Total Protein 6.5 Albumin 2.8 L Urine Color Urine Appearance Urine pH Ur Specific [place] Urine Protein Urine Glucose (UA) Urine Ketones Urine Blood Urine Nitrite Urine Bilirubin Urine Urobilinogen Ur Leukocyte Esterase Urine RBC Urine WBC Ur Epithelial Cells Urine Bacteria Hyaline Casts Urine Mucus RPR Titer Nonreactive HIV 1&2 Antibody Screen HIV P24 Antigen labs reviewed Assessment: 07/14/17 09:09 withdrawal sx, psych meds not adequate, uti, pneumonia with effusion, dehydration Plan: cont detox, restart psych meds at full dosage as no sign of sedation on current medication regimen, sen urine and sputum for culture, AFB sputum culture, plant PPD again, start antibiotics, repeat labs before discharge
[2017-07-14] MEDS: diazePAM 5 MG TABLET PO PRN (09:40)
[2017-07-14] MEDS: PANTOPRAZOLE 40 MG TABLET (FP) PO SCH (09:41)
[2017-07-14] MEDS: PRENATAL VITAMINS W/ FOLIC ACID TABLET (FP) PO SCH (09:41)
[2017-07-14] MEDS: QUEtiapine FUMARATE 50 MG TABLET PO SCH ×2 (09:43→17:53)
[2017-07-14] MEDS: METHADONE HCL 5 MG TABLET (FOR DETOX USE ONLY) PO SCH (09:44)
[2017-07-14] MEDS ORDERED: cloNIDine-TTS 0.1 MG/24 HRS PATCH.TDWK TD SCH (10:00)
[2017-07-14] MEDS ORDERED: SULFAMETHOXAZOLE/TRIMETHOPRIM 800MG/160MG D.S. TABLET PO SCH (10:00)
[2017-07-14] MEDS: diazePAM 5 MG TABLET PO SCH ×2 (10:20→22:07)
[2017-07-14] MEDS: NICOTINE 21 MG/24 HOURS TOPICAL PATCH TD SCH (11:23)
[2017-07-14] MEDS: LEVOFLOXACIN 250 MG TABLET (FP) PO SCH (12:25)
[2017-07-14] MEDS: hydrOXYzine HCL 10 MG TABLET PO SCH ×3 (13:04→23:10)
[2017-07-14 13:55] LABS: URINE APPEARANCE SLCLOUDY; URINE BILIRUBIN NEGATIVE (NEGATIVE); URINE BLOOD NEGATIVE (NEGATIVE); URINE COLOR LTYELLOW; URINE GLUCOSE (UA) NEGATIVE (NEGATIVE); URINE KETONE NEGATIVE (NEGATIVE); URINE LEUK ESTERASE TRACE (NEGATIVE); URINE NITRITE NEGATIVE (NEGATIVE); URINE PROTEIN NEGATIVE (NEGATIVE); URINE UROBILINOGEN NEGATIVE mg/dL (0.2-1.0)
[2017-07-14 14:11] LABS: URINE BACTERIA RARE /hpf (NONE SEEN); URINE RBC <1 /hpf (0-3); URINE WBC 4 /hpf (3-5)
[2017-07-14] MEDS: QUEtiapine FUMARATE 100 MG TABLET (FP) PO SCH (22:07)
[2017-07-14] MEDS: THIAMINE HCL 100 MG TABLET (FP) PO SCH (22:07)
[2017-07-15] MEDS: diazePAM 5 MG TABLET PO PRN ×3 (04:06→17:46)
[2017-07-15] MEDS: hydrOXYzine HCL 10 MG TABLET PO SCH ×4 (05:17→23:07)
[2017-07-15] MEDS: LEVOFLOXACIN 250 MG TABLET (FP) PO SCH (07:15)
[2017-07-15] MEDS: PANTOPRAZOLE 40 MG TABLET (FP) PO SCH (10:22)
[2017-07-15] MEDS: QUEtiapine FUMARATE 50 MG TABLET PO SCH ×3 (10:22→22:08)
[2017-07-15] MEDS: METHADONE HCL 5 MG TABLET (FOR DETOX USE ONLY) PO SCH (10:22)
[2017-07-15] MEDS: PRENATAL VITAMINS W/ FOLIC ACID TABLET (FP) PO SCH (10:22)
[2017-07-15] MEDS: NICOTINE 21 MG/24 HOURS TOPICAL PATCH TD SCH (10:23)
[2017-07-15] MEDS: diazePAM 5 MG TABLET PO SCH ×2 (10:24→22:08)
--- NOTE | 2017-07-15 10:40 | PN ---
Psychiatric Progress Note Vital Signs: Vital Signs Period Temp Pulse Resp BP Sys/Saha Pulse Ox Last 24 Hr 96.3 F-97.7 F 50-78 16-18 90-102/53-65 Date of Session: 07/15/17 Chief Complaint:: medications HPI: Patine reports taking prior to admission: Seroquel 50mg po bid, 150mg po qhs Current Medications: Active Medications Generic Name Dose Route Start Last Admin Trade Name Freq PRN Reason Stop Dose Admin Acetaminophen 650 mg 07/12/17 17:48 Tylenol - PO Q4H PRN FEVER OR PAIN Al Hydroxide/Mg Hydroxide 30 ml 07/12/17 17:48 Mylanta Oral Suspension - PO Q6H PRN DYSPEPSIA Clonidine 0.1 mg 07/14/17 08:58 Catapres - PO BID PRN ANXIETY Clonidine HCl 0.1 mg 07/21/17 10:00 Catapres Tts Patch - TD We@1000 MARYJO Diazepam 10 mg 07/12/17 17:48 07/15/17 10:22 Valium - PO 07/15/17 17:48 10 mg Q4H PRN Administration WITHDRAWAL(CONT SUBST) Diazepam 5 mg 07/14/17 10:00 07/15/17 10:24 Valium - PO 07/15/17 22:01 Not Given BID [facility] Diazepam 5 mg 07/16/17 10:00 Valium - PO 07/16/17 10:01 DAILY MARYJO Diphenhydramine HCl 50 mg 07/12/17 17:48 Benadryl - PO HSMR1 PRN INSOMNIA Eucalyptus/Menthol/Phenol/Sorbitol 1 each 07/12/17 17:48 Cepastat Lozenge - MM Q4H PRN SORE THROAT Guaifenesin 10 ml 07/12/17 17:48 07/13/17 08:51 Robitussin Dm - PO 10 ml Q6H PRN Administration COUGH Hydroxyzine HCl 10 mg 07/14/17 12:00 07/15/17 05:17 Atarax - PO 10 mg Q6HPO MARYJO Administration Ibuprofen 800 mg 07/13/17 12:23 07/14/17 09:41 Motrin - PO 800 mg Q8H PRN Administration PAIN Levofloxacin 750 mg 07/14/17 10:00 07/15/17 07:15 Levaquin - PO 750 mg DAILY@0600 [facility] Administration Loperamide HCl 4 mg 07/12/17 17:48 Imodium - PO Q6H PRN DIARRHEA Magnesium Citrate 300 ml 07/12/17 17:48 Citroma - PO Q48H PRN CONSTIPATION Magnesium Hydroxide 30 ml 07/12/17 17:48 Milk Of Magnesia - PO DAILY PRN CONSTIPATION Methadone HCl 10 mg 07/16/17 10:00 Dolophine - PO 07/16/17 10:01 DAILY MARYJO Methadone HCl 5 mg 07/17/17 06:00 Dolophine - PO 07/17/17 06:01 DAILY@0600 [facility] Nicotine 21 mg 07/13/17 10:00 07/15/17 10:23 Nicoderm Patch - TD 21 mg DAILY MARYJO Administration Nicotine Polacrilex 4 mg 07/12/17 17:48 Nicorette Gum - BUC Q2H PRN NICOTINE REPLACEMENT RX Pantoprazole Sodium 40 mg 07/14/17 10:00 07/15/17 10:22 Protonix - PO 40 mg DAILY MARYJO Administration Multivit/Folic Acid/Iron 1 tab 07/13/17 10:00 07/15/17 10:22 Vitamins (Sjr) - PO 1 tab DAILY [facility] Administration Pseudoephedrine/Triprolidine 1 combo 07/12/17 17:48 Actifed - PO TID PRN NASAL CONGESTION Quetiapine Fumarate 50 mg 07/14/17 10:00 07/15/17 10:22 Seroquel - PO 50 mg BID@1000,1800 [facility] Administration Quetiapine Fumarate 150 mg 07/15/17 10:31 Seroquel - PO HS MARYJO Thiamine HCl 100 mg 07/12/17 22:00 07/14/17 22:07 Vitamin B1 - PO 100 mg HS [facility] Administration Zolpidem Tartrate 10 mg 07/14/17 09:07 Ambien - PO 07/17/17 09:06 HS PRN INSOMNIA Medication(s) Change(s): Seroquel 50mg po bid, 150mg po qhs Mental Status Exam - Mental Status Exam Alert and Oriented to: Person Cognitive Function: Fair Patient Appearance: Unkempt Mood: Anxious Affect: Mood Congruent Patient Behavior: Cooperative Speech Pattern: Appropriate Voice Loudness: Normal Thought Process: Goal Oriented Thought Disorder: Being Controlled Hallucinations: Denies Suicidal Ideation: Denies Homicidal Ideation: Denies Insight/Judgement: Fair Sleep: Difficulty falling asleep Appetite: Fair Muscle strength/Tone: Normal Gait/Station: Shuffling Additional Comments: Seroquel 50mg po bid, 150mg po qhs Psychiatric Treatment Plan - Problem List (1) Cannabis dependence, uncomplicated Current Visit: Yes (2) Drug-induced mood disorder Current Visit: Yes (3) Opioid dependence with withdrawal Current Visit: Yes (4) Sedative, hypnotic or anxiolytic dependence, uncomplicated Current Visit: Yes (5) Unsteady gait Current Visit: Yes Comment: 2008 (6) Uncomplicated opioid dependence Current Visit: No Initial treatment plan: Seroquel 50mg po bid, 150mg po qhs
[2017-07-15] MEDS ORDERED: QUEtiapine FUMARATE 100 MG TABLET (FP) PO SCH ×2 (10:45)
[2017-07-15] MEDS ORDERED: cloNIDine-TTS 0.1 MG/24 HRS PATCH.TDWK TD ONE (11:30)
--- NOTE | 2017-07-15 12:12 | PN ---
[facility] Progress Note (SOAP) Subjective: anxiety sweats interrupted sleep I need to see psych for re-evaluation of my medication Objective: 07/15/17 12:11 Vital Signs Temperature 97.7 F 07/15/17 09:58 Pulse Rate 69 07/15/17 09:58 Respiratory Rate 18 07/15/17 09:58 Blood Pressure 101/65 07/15/17 09:58 O2 Sat by Pulse Oximetry (%) Laboratory Tests 07/12/17 07/13/17 07/13/17 16:30 07:00 07:00 WBC 18.6 H RBC 3.89 Hgb 11.1 Hct 35.0 MCV 90.1 MCH 28.6 MCHC 31.8 L RDW 15.1 Plt Count 296 MPV 8.0 Sodium Potassium Chloride Carbon Dioxide Anion Gap BUN Creatinine Creat Clearance w eGFR Random Glucose Calcium Total Bilirubin AST ALT Alkaline Phosphatase Total Protein Albumin Urine Color Yellow Urine Appearance Cloudy Urine pH 5.0 Ur Specific [place] 1.020 Urine Protein 1+ H Urine Glucose (UA) Negative Urine Ketones Negative Urine Blood Negative Urine Nitrite Negative Urine Bilirubin Negative Urine Urobilinogen Negative Ur Leukocyte Esterase 1+ H Urine RBC <1 Urine WBC 3 Ur Epithelial Cells Many Urine Bacteria Rare Hyaline Casts 3 Urine Mucus Many RPR Titer HIV 1&2 Antibody Screen Negative HIV P24 Antigen Negative 07/13/17 07/13/17 07/14/17 07:00 07:00 11:30 WBC RBC Hgb Hct MCV MCH MCHC RDW Plt Count MPV Sodium 142 Potassium 3.7 Chloride 108 H Carbon Dioxide 27 Anion Gap 7 L BUN 15 Creatinine 1.5 H Creat Clearance w eGFR 36.61 Random Glucose 95 Calcium 8.2 L Total Bilirubin 0.3 AST 18 ALT 19 Alkaline Phosphatase 112 Total Protein 6.5 Albumin 2.8 L Urine Color Ltyellow Urine Appearance Slcloudy Urine pH 6.0 Ur Specific [place] 1.010 Urine Protein Negative Urine Glucose (UA) Negative Urine Ketones Negative Urine Blood Negative Urine Nitrite Negative Urine Bilirubin Negative Urine Urobilinogen Negative Ur Leukocyte Esterase Trace Urine RBC <1 Urine WBC 4 Ur Epithelial Cells Few Urine Bacteria Rare Hyaline Casts Urine Mucus RPR Titer Nonreactive HIV 1&2 Antibody Screen HIV P24 Antigen labs pending awake/alert ambulating no acute distress Assessment: 07/15/17 12:11 withdrawal sx Plan: continue detox increase fluids continue ABX f/u pending labs
[2017-07-15] MEDS: THIAMINE HCL 100 MG TABLET (FP) PO SCH (22:07)
[2017-07-15] MEDS: cloNIDine HCL 0.1 MG TABLET PO PRN (22:08)
[2017-07-15] MEDS: ZOLPIDEM TARTRATE 10 MG TABLET (PARK CARE ONLY) PO PRN (22:08)
[2017-07-16] MEDS: hydrOXYzine HCL 10 MG TABLET PO SCH ×3 (05:42→18:17)
[2017-07-16] MEDS: LEVOFLOXACIN 250 MG TABLET (FP) PO SCH (07:28)
--- NOTE | 2017-07-16 09:10 | PN ---
S Progress Note (SOAP) Subjective: ALERT,INTERRUPTED SLEEP,PAIN IN THE BODY,BACK Objective: 07/16/17 09:08 Vital Signs Temperature 97.7 F 07/16/17 06:25 Pulse Rate 50 L 07/16/17 06:25 Respiratory Rate 16 07/16/17 06:25 Blood Pressure 116/58 07/16/17 06:25 O2 Sat by Pulse Oximetry (%) Assessment: 07/16/17 09:09 WITHDRAWAL SYMPTOM URINE FOR C/S NO GROWTH SPUTUM FOR AFB SMEAR NEGATIVE PENDING ON C/S Plan: WITHDRAWAL SYMPTOM,CONTINUE DETOX,PATIENT HAS FAMILY DOCTOR THAT SHE WILL FOLLOW UP FOR MEDICAL PROBLEM
[2017-07-16] MEDS ORDERED: METHADONE HCL 10 MG TABLET (FOR DETOX USE ONLY) PO SCH (10:00)
[2017-07-16] MEDS ORDERED: diazePAM 5 MG TABLET PO SCH (10:00)
[2017-07-16] MEDS: QUEtiapine FUMARATE 50 MG TABLET PO SCH ×3 (10:10→22:03)
[2017-07-16] MEDS: PANTOPRAZOLE 40 MG TABLET (FP) PO SCH (10:10)
[2017-07-16] MEDS: NICOTINE 21 MG/24 HOURS TOPICAL PATCH TD SCH (10:11)
[2017-07-16] MEDS: PRENATAL VITAMINS W/ FOLIC ACID TABLET (FP) PO SCH (10:13)
[2017-07-16] MEDS: ZOLPIDEM TARTRATE 10 MG TABLET (PARK CARE ONLY) PO PRN (22:03)
[2017-07-16] MEDS: cloNIDine HCL 0.1 MG TABLET PO PRN (22:03)
[2017-07-16] MEDS: THIAMINE HCL 100 MG TABLET (FP) PO SCH (22:36)
[2017-07-17] MEDS: hydrOXYzine HCL 10 MG TABLET PO SCH ×2 (02:55→05:14)
[2017-07-17] MEDS: LEVOFLOXACIN 250 MG TABLET (FP) PO SCH (05:14)
[2017-07-17] MEDS ORDERED: METHADONE HCL 5 MG TABLET (FOR DETOX USE ONLY) PO SCH (06:00)
[2017-07-17 10:19] VITALS: BP 95/65; PULSE 113; TEMP 97
--- NOTE | 2017-07-17 10:44 | DS ---
[facility] Detox Discharge Summary Admission Date: 07/12/17 Discharge Date: 07/17/17 - History Present History: Cannabis Dependence, Opioid Dependence, Sedative Dependence Pertinent Past History: OA, Insomnia - Physical Exam Results Vital Signs: Vital Signs Temperature 97.0 F L 07/17/17 10:00 Pulse Rate 113 H 07/17/17 10:00 Respiratory Rate 20 07/17/17 10:00 Blood Pressure 95/65 07/17/17 10:00 O2 Sat by Pulse Oximetry (%) Pertinent Admission Physical Exam Findings: withdrawal sx Laboratory Last Values WBC 18.6 K/mm3 (4.0-10.0) H 07/13/17 07:00 RBC 3.89 M/mm3 (3.60-5.2) 07/13/17 07:00 Hgb 11.1 GM/dL (10.7-15.3) 07/13/17 07:00 Hct 35.0 % (32.4-45.2) 07/13/17 07:00 MCV 90.1 fl (80-96) 07/13/17 07:00 MCH 28.6 pg (25.7-33.7) 07/13/17 07:00 MCHC 31.8 g/dl (32.0-36.0) L 07/13/17 07:00 RDW 15.1 % (11.6-15.6) 07/13/17 07:00 Plt Count 296 K/MM3 (134-434) 07/13/17 07:00 MPV 8.0 fl (7.5-11.1) 07/13/17 07:00 Sodium 142 mmol/L (136-145) 07/13/17 07:00 Potassium 3.7 mmol/L (3.5-5.1) 07/13/17 07:00 Chloride 108 mmol/L (98-107) H 07/13/17 07:00 Carbon Dioxide 27 mmol/L (21-32) 07/13/17 07:00 Anion Gap 7 (8-16) L 07/13/17 07:00 BUN 15 mg/dL (7-18) 07/13/17 07:00 Creatinine 1.5 mg/dL (0.55-1.02) H 07/13/17 07:00 Creat Clearance w eGFR 36.61 (>60) 07/13/17 07:00 Random Glucose 95 mg/dL (74-106) 07/13/17 07:00 Calcium 8.2 mg/dL (8.5-10.1) L 07/13/17 07:00 Total Bilirubin 0.3 mg/dL (0.2-1.0) 07/13/17 07:00 AST 18 U/L (15-37) 07/13/17 07:00 ALT 19 U/L (12-78) 07/13/17 07:00 Alkaline Phosphatase 112 U/L (45-117) 07/13/17 07:00 Total Protein 6.5 g/dl (6.4-8.2) 07/13/17 07:00 Albumin 2.8 g/dl (3.4-5.0) L 07/13/17 07:00 Urine Color Ltyellow 07/14/17 11:30 Urine Appearance Slcloudy 07/14/17 11:30 Urine pH 6.0 (5.0-8.0) 07/14/17 11:30 Ur Specific [place] 1.010 (1.005-1.025) 07/14/17 11:30 Urine Protein Negative (NEGATIVE) 07/14/17 11:30 Urine Glucose (UA) Negative (NEGATIVE) 07/14/17 11:30 Urine Ketones Negative (NEGATIVE) 07/14/17 11:30 Urine Blood Negative (NEGATIVE) 07/14/17 11:30 Urine Nitrite Negative (NEGATIVE) 07/14/17 11:30 Urine Bilirubin Negative (NEGATIVE) 07/14/17 11:30 Urine Urobilinogen Negative mg/dL (0.2-1.0) 07/14/17 11:30 Ur Leukocyte Esterase Trace (NEGATIVE) 07/14/17 11:30 Urine RBC <1 /hpf (0-3) 07/14/17 11:30 Urine WBC 4 /hpf (3-5) 07/14/17 11:30 Ur Epithelial Cells Few /hpf (FEW) 07/14/17 11:30 Urine Bacteria Rare /hpf (NONE SEEN) 07/14/17 11:30 Hyaline Casts 3 /lpf 07/12/17 16:30 Urine Mucus Many 07/12/17 16:30 RPR Titer Nonreactive (NONREACTIVE) 07/13/17 07:00 HIV 1&2 Antibody Screen Negative 07/13/17 07:00 HIV P24 Antigen Negative 07/13/17 07:00 labs noted - Treatment Hospital Course: Detox Protocol Followed, Detoxed Safely, Responded well, Discharged Condition Good - Medication Discharge Medications: Ambulatory Orders Ibuprofen [Motrin -] 800 mg PO PRN PRN 06/08/17 Quetiapine Fumarate [Seroquel] 150 mg PO HS #30 tab 06/09/17 Clonidine Patch [Catapres Tts Patch -] 0.1 mg TD WEEKLY 07/12/17 Hydroxyzine HCl 10 mg PO QID 07/12/17 Quetiapine Fumarate [Seroquel -] 50 mg PO BID 07/12/17 Quetiapine Fumarate [Seroquel -] 150 mg PO HS #30 tablet 07/13/17 Quetiapine Fumarate [Seroquel] 150 mg PO HS #30 tablet 07/15/17 Levofloxacin [Levaquin -] 750 mg PO DAILY@0600 #7 tablet 07/16/17 - Diagnosis (1) Drug-induced mood disorder Current Visit: Yes Status: Acute (2) Insomnia Current Visit: Yes Status: Acute (3) Sedative, hypnotic or anxiolytic dependence, uncomplicated Current Visit: Yes Status: Acute (4) Cannabis dependence, uncomplicated Current Visit: Yes Status: Acute (5) Osteoarthritis Current Visit: Yes Status: Chronic Qualifiers: Osteoarthritis location: foot Osteoarthritis type: unspecified Laterality: right Qualified Code(s): M19.071 - Primary osteoarthritis, right ankle and foot - AMA Did Patient Leave Against Medical Advice: No
[2017-07-21] MEDS ORDERED: cloNIDine-TTS 0.1 MG/24 HRS PATCH.TDWK TD SCH (10:00)
== END 2017-07-17 09:35 | disposition home or self-care (01) | DRG 896 ==
LOC: YASAS 13:39 → Y6N 18:08
PROVIDERS: ADMIT Internal Medicine Addiction Medicine; ATTEND Internal Medicine Addiction Medicine
PROC: HZ2ZZZZ Detoxification Services for Substance Abuse Treatment (ICD-10-PCS; principal; 2017-07-12)
DX: F19.230 Other psychoactive substance dependence with withdrawal, uncomplicated (principal); J18.9 Pneumonia, unspecified organism; N39.0 Urinary tract infection, site not specified; J91.8 Pleural effusion in other conditions classified elsewhere; F11.23 Opioid dependence with withdrawal; F13.230 Sedative, hypnotic or anxiolytic dependence with withdrawal, uncomplicated; F12.20 Cannabis dependence, uncomplicated; F17.210 Nicotine dependence, cigarettes, uncomplicated; F19.24 Other psychoactive substance dependence with psychoactive substance-induced mood disorder; E66.9 Obesity, unspecified; Z68.31 Body mass index [BMI] 31.0-31.9, adult; G47.00 Insomnia, unspecified; R00.0 Tachycardia, unspecified; M19.071 Primary osteoarthritis, right ankle and foot; R26.81 Unsteadiness on feet; M54.5 Low back pain; E86.0 Dehydration; B18.2 Chronic viral hepatitis C; Z86.69 Personal history of other diseases of the nervous system and sense organs; Z96.651 Presence of right artificial knee joint; Z86.14 Personal history of Methicillin resistant Staphylococcus aureus infection; Z86.2 Personal history of diseases of the blood and blood-forming organs and certain disorders involving the immune mechanism; Z98.1 Arthrodesis status
CPT/HCPCS: 36415; 71020-TC; 80053; 81003; 81015; 85027; 86593; 87086; 87116; 87206; 87389; 93005; 93010

== ENCOUNTER 2019-02-11 14:26 | Inpatient (IN) | payer OTHER ==
[2019-02-11 14:43] VITALS: BMI 33.5
--- NOTE | 2019-02-11 15:06 | HP ---
COWS - Scale Resting Pulse: 1= VT 81-100 Sweatin=Flushed/Facial Moisture Restless Observation: 1= Difficult to Sit Still Pupil Size: 0= Normal to Room Light Bone or Joint Aches: 2= Severe Diffuse Aches Runny Nose/ Eye Tearin= Runny Nose/Eyes GI Upset > 30mins: 2= Nausea/Diarrhea Tremor Observation: 2= Slight Tremor Visible Yawning Observation: 1= 1-2x During Session Anxiety or Irritability: 2=Irritable/Anxious Goose Flesh Skin: 3=Piloerection COWS Score: 18 CIWA Score Nausea/Vomitin Muscle Tremors: 2 Anxiety: 2 Agitation: 2 Paroxysmal Sweats: 2 Orientation: 0-Oriented Tacttile Disturbances: 2-Mild Itch/Numbness/Burn Auditory Disturbances: 1-Very Mild Visual Disturbances: 0-None Headache: 1-Very Mild CIWA-Ar Total Score: 15 - Admission Criteria OASAS Guidelines: Admission for Medically Managed Detox: Requires at least one of the followin. CIWA greater than 12 2. Seizures within the past 24 hours 3. Delirium tremens within the past 24 hours 4. Hallucinations within the past 24 hours 5. Acute intervention needed for co occurring medical disorder 6. Acute intervention needed for co occurring psychiatric disorder 7. Severe withdrawal that cannot be handled at a lower level of care (continued vomiting, continued diarrhea, abnormal vital signs) requiring intravenous medication and/or fluids 8. Patient presents the following: CIWA greater than 12 Admission Criteria Met: Admission criteria met Admission ROS S - [facility] Chief Complaint: I am here to get off the heroin and drinking and get my life back Allergies/Adverse Reactions: Allergies Allergy/AdvReac Type Severity Reaction Status Date / Time No Known Allergies Allergy Verified 02/11/19 14:32 History of Present Illness: 53 year old woman with alcohol and heroin dependence presents for detox. Her last detox was 2 years ago with recent relapse 2 months ago. She denies seizures associated with alcohol and drugs. Exam Limitations: No Limitations - Ebola screening Have you traveled outside of the country in the last 21 days: No (N) Have you had contact with anyone from an Ebola affected area: No Have you been sick,other than usual withdrawal symptoms: No Do you have a fever: No - Review of Systems Constitutional: Chills, Loss of Appetite EENT: reports: Other (full set of dentures) Respiratory: reports: No Symptoms reported Cardiac: reports: Lightheadedness GI: reports: Diarrhea, Poor Appetite : reports: Burning, Frequency Musculoskeletal: reports: Back Pain, Joint Pain, Muscle Pain Integumentary: reports: No Symptoms Reported Neuro: reports: Numbness Endocrine: reports: No Symptoms Reported Hematology: reports: No Symptoms Reported Psychiatric: reports: Depressed Other Systems: Reviewed and Negative Patient History - Patient Medical History Hx Anemia: No Hx Asthma: No Hx Chronic Obstructive Pulmonary Disease (COPD): No Hx Cancer: No Hx Cardiac Disorders: No Hx Congestive Heart Failure: No Hx Hypertension: No Hx Hypercholesterolemia: No Hx Pacemaker: No HX Cerebrovascular Accident: No Hx Seizures: Yes (age 20's last episode) Hx Dementia: No Hx Diabetes: No Hx Gastrointestinal Disorders: No Hx Liver Disease: No Hx Genitourinary Disorders: No Hx Sexually Transmitted Disorders: No Hx Renal Disease (ESRD): No Hx Thyroid Disease: No Hx Human Immunodeficiency Virus (HIV): No Hx Hepatitis C: Yes (Not treated) Hx Depression: Yes Hx Suicide Attempt: No Hx Bipolar Disorder: No Hx Schizophrenia: No - Patient Surgical History Past Surgical History: Yes Hx Neurologic Surgery: No Hx Cataract Extraction: No Hx Cardiac Surgery: No Hx Lung Surgery: No Hx Breast Surgery: No Hx Breast Biopsy: No Hx Abdominal Surgery: Yes (LACERATED SPLEEN-2008) Hx Appendectomy: No Hx Cholecystectomy: Yes (2012) Hx Genitourinary Surgery: No Hx Section: No Hx Orthopedic Surgery: Yes (2008:RT LE FX REPAIR; 2015: RT KNEE REPLACEMENT; 2004:CERVIAL SP FUSION ) Hx Hysterectomy: No Anesthesia Reaction: No - PPD History Previous Implant?: Yes Documented Results: Negative w/proof Implanted On Prior R Admission?: Yes Date: 07/16/17 PPD to be Administered?: Yes - Reproductive History Patient is a Female of Child Bearing Age (11 -55 yrs old): Yes Last Menstrual Period: 07/12/14 Patient : No - Smoking Cessation Smoking history: Current every day smoker Have you smoked in the past 12 months: Yes Aproximately how many cigarettes per day: 10 Cigars Per Day: 0 Hx Chewing Tobacco Use: No Initiated information on smoking cessation: Yes 'Breaking Loose' booklet given: 02/11/19 - Substances abused Heroin Substance route: Inhalation Frequency: Daily Amount used: 5bags Age of first use: 18 Date of last use: 02/11/19 Alcohol Substance route: Oral Frequency: Daily Amount used: 1 pt. huma Age of first use: 14 Date of last use: 02/11/19 Family Disease History - Family Disease History Family Disease History: Diabetes: Mother (CERVIAL CA), Heart Disease: Brother ( [place]-DECEAESD ), CA: Brother, Respiratory: Father (LEUKEMIA- ) Admission Physical Exam [facility] - Vital Signs Vital Signs: Vital Signs - 24 hr 02/11/19 14:28 Temperature 98 F Pulse Rate 86 Respiratory 18 Rate Blood Pressure 110/72 - Physical General Appearance: Yes: Appropriately Dressed, Obese HEENTM: Yes: Hearing grossly Normal, Normocephalic, Normal Voice Respiratory: Yes: Chest Non-Tender, Lungs Clear, No Respiratory Distress, No Accessory Muscle Use Neck: Yes: No masses,lesions,Nodules Breast: Yes: Breast Exam Deferred Cardiology: Yes: Regular Rhythm, Regular Rate, S1, S2 Abdominal: Yes: Normal Bowel Sounds, Non Tender Genitourinary: Yes: Burning, Itiching Back: Yes: Normal Inspection Musculoskeletal: Yes: Muscle weakness, Other (unsteady gait) Extremities: Yes: Normal Capillary Refill, Normal Inspection, Tremors, Other ( right lower ext decreased ROM walks with a limp r/t RLE old injury, s/p surgery ) Neurological: Yes: 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, Fully Oriented, Alert, Normal Mood/ Affect, Normal Response Integumentary: Yes: Normal Color, Warm, Other (right upper thigh stacey, multiple surgical scars on LE) Lymphatic: Yes: Within Normal Limits - Diagnostic (1) Alcohol dependence, uncomplicated Current Visit: Yes Status: Acute (2) Nicotine dependence Current Visit: Yes Status: Acute Qualifiers: Nicotine product type: cigarettes Substance use status: uncomplicated Qualified Code(s): F17.210 - Nicotine dependence, cigarettes, uncomplicated (3) Opioid dependence with withdrawal Current Visit: No Status: Acute (4) Unsteady gait Current Visit: No Status: Chronic Comment: 2008 Cleared for Admission [facility] - Detox or Rehab [facility] Level of Care: Medically Managed Detox Regimen/Protocol: Methadone/Librium Inpatient Rehab Admission - Rehab Decision to Admit Inpatient rehab admission?: No - Initial Determination Are CD services needed?: Yes Free of communicable disease: Yes Not in need of hospitalization: Yes
[2019-02-11] MEDS ORDERED: MAGNESIUM HYDROX 2400MG/30ML ORAL SUSPENSION 30 ML CUP PO PRN (15:16)
[2019-02-11] MEDS ORDERED: chlordiazePOXIDE HCL 10 MG CAPSULE PO PRN (15:16)
[2019-02-11] MEDS ORDERED: MAG HYDROX/AL HYDROX/SIMETH 30 ML UNIT-DOSE CUP PO PRN (15:16)
[2019-02-11] MEDS ORDERED: hydrOXYzine PAMOATE 25 MG CAPSULE (FP) PO PRN (15:16)
[2019-02-11] MEDS ORDERED: IBUPROFEN 400 MG TABLET (FP) PO PRN (15:16)
[2019-02-11] MEDS ORDERED: MENTHOL/PHENOL 1 EACH UD MM PRN (15:16)
[2019-02-11] MEDS ORDERED: MAGNESIUM CITRATE 300 ML BOTTLE PO PRN (15:16)
[2019-02-11] MEDS ORDERED: cloNIDine HCL 0.1 MG TABLET PO PRN (15:16)
[2019-02-11] MEDS ORDERED: ONDANSETRON *ODT* 4 MG TABLET SL PRN (15:16)
[2019-02-11] MEDS ORDERED: ACETAMINOPHEN 325 MG TABLET (FP) PO PRN (15:16)
[2019-02-11] MEDS ORDERED: MELATONIN 5 MG TABLETS PO PRN (15:16)
[2019-02-11] MEDS ORDERED: clonazePAM 0.5 MG TABLET PO PRN (15:16)
[2019-02-11] MEDS ORDERED: NICOTINE POLACRILEX 2 MG GUM BUC PRN (15:16)
[2019-02-11] MEDS ORDERED: BISMUTH SUBSALICYLATE 524 MG/30 ML UD PO PRN (15:16)
[2019-02-11] MEDS ORDERED: chlordiazePOXIDE HCL 25 MG CAPSULE PO ONE (16:45)
[2019-02-11] MEDS ORDERED: METHADONE HCL 10 MG TABLET (FOR DETOX USE ONLY) PO ONE ×2 (16:45→23:00)
[2019-02-11] MEDS: NICOTINE 7 MG/24 HOURS TOPICAL PATCH TD SCH (17:36)
[2019-02-11] MEDS: METHOCARBAMOL 500 MG TABLET PO PRN (22:54)
[2019-02-11] MEDS: chlordiazePOXIDE HCL 25 MG CAPSULE PO SCH (22:54)
[2019-02-11] MEDS: THIAMINE HCL 100 MG TABLET (FP) PO SCH (23:22)
[2019-02-12] MEDS: chlordiazePOXIDE HCL 25 MG CAPSULE PO SCH ×2 (05:17→13:00)
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
[2019-02-12 09:50] LABS: HEMATOCRIT 37.1 % (32.4-45.2); HEMOGLOBIN 12.2 GM/dL (10.7-15.3); MCH 30.9 pg (25.7-33.7); MEAN CELL VOLUME 93.7 fl (80-96); MEAN PLT VOLUME 8.8 fl (7.5-11.1); PLATELET COUNT 247 K/MM3 (134-434); RBC 3.96 M/mm3 (3.60-5.2)
[2019-02-12 09:52] LABS: ALBUMIN 2.9 g/dl (3.4-5.0); ALK PHOS 149 U/L (45-117); ANION GAP 9 MMOL/L (8-16); BILIRUBIN,TOTAL 0.2 mg/dL (0.2-1); BLOOD UREA NITROGEN 23 mg/dL (7-18); CALCIUM 7.7 mg/dL (8.5-10.1); CHLORIDE 111 mmol/L (98-107); CO2 23 mmol/L (21-32); CREATININE 1.3 mg/dL (0.55-1.3); GLUCOSE,RANDOM 87 mg/dL (74-106); POTASSIUM 3.5 mmol/L (3.5-5.1); SGOT/AST 22 U/L (15-37); SGPT/ALT 26 U/L (13-61); SODIUM 143 mmol/L (136-145); TOT PROT 6.4 g/dl (6.4-8.2)
[2019-02-12] MEDS ORDERED: METHADONE HCL 5 MG TABLET (FOR DETOX USE ONLY) PO ONE (10:00)
[2019-02-12] MEDS: PRENATAL VITAMINS W/ FOLIC ACID TABLET (FP) PO SCH (10:25)
[2019-02-12] MEDS: NICOTINE 7 MG/24 HOURS TOPICAL PATCH TD SCH (10:26)
[2019-02-12] MEDS ORDERED: LOPERAMIDE HCL 2 MG CAPSULE PO ONE (11:55)
--- NOTE | 2019-02-12 15:02 | PN ---
S CIWA - CIWA Score Nausea/Vomitin-Mild Nausea/No Vomiting Muscle Tremors: 3 Anxiety: 2 Agitation: 2 Paroxysmal Sweats: 1-Minimal Palms Moist Orientation: 2-Disoriented Date<2 days Tacttile Disturbances: 0-None Auditory Disturbances: 0-None Visual Disturbances: 0-None Headache: 2-Mild CIWA-Ar Total Score: 13 BHS COWS - Scale Resting Pulse: 0= NM 80 or Below Sweatin= Chills/Flushing Restless Observation: 0= Sits Still Pupil Size: 0= Normal to Room Light Bone or Joint Aches: 1= Mild Discomfort Runny Nose/ Eye Tearin= Nasal Congestion GI Upset > 30mins: 2= Nausea/Diarrhea Tremor Observation of Outstretched Hands: 2= Slight Tremor Visible Yawning Observation: 2= >3x During Session Anxiety or Irritability: 2=Irritable/Anxious Goose Flesh Skin: 0=Smooth Skin COWS Score: 11 BHS Progress Note (SOAP) Subjective: patient is irritable that she told the nurse she saw roommate had oral sex last night patient had verbal altercation with peer patient is able to control herself with the team of nurse counselor 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 patient is doing well rest of the day and diarrhea controlled by one dose of immodium Objective: 02/12/19 15:02 Vital Signs Temperature 97.5 F L 02/12/19 13:42 Pulse Rate 74 02/12/19 13:42 Respiratory Rate 18 02/12/19 13:42 Blood Pressure 102/62 02/12/19 13:42 O2 Sat by Pulse Oximetry (%) Laboratory Last Values WBC 11.0 K/mm3 (4.0-10.0) H 02/12/19 07:50 RBC 3.96 M/mm3 (3.60-5.2) 02/12/19 07:50 Hgb 12.2 GM/dL (10.7-15.3) 02/12/19 07:50 Hct 37.1 % (32.4-45.2) 02/12/19 07:50 MCV 93.7 fl (80-96) 02/12/19 07:50 MCH 30.9 pg (25.7-33.7) 02/12/19 07:50 MCHC 33.0 g/dl (32.0-36.0) 02/12/19 07:50 RDW 13.0 % (11.6-15.6) D 02/12/19 07:50 Plt Count 247 K/MM3 (134-434) 02/12/19 07:50 MPV 8.8 fl (7.5-11.1) 02/12/19 07:50 Sodium 143 mmol/L (136-145) 02/12/19 07:50 Potassium 3.5 mmol/L (3.5-5.1) 02/12/19 07:50 Chloride 111 mmol/L (98-107) H 02/12/19 07:50 Carbon Dioxide 23 mmol/L (21-32) 02/12/19 07:50 Anion Gap 9 MMOL/L (8-16) 02/12/19 07:50 BUN 23 mg/dL (7-18) H 02/12/19 07:50 Creatinine 1.3 mg/dL (0.55-1.3) 02/12/19 07:50 Creat Clearance w eGFR 42.85 (>60) 02/12/19 07:50 Random Glucose 87 mg/dL (74-106) 02/12/19 07:50 Calcium 7.7 mg/dL (8.5-10.1) L 02/12/19 07:50 Total Bilirubin 0.2 mg/dL (0.2-1) 02/12/19 07:50 AST 22 U/L (15-37) 02/12/19 07:50 ALT 26 U/L (13-61) 02/12/19 07:50 Alkaline Phosphatase 149 U/L (45-117) H 02/12/19 07:50 Total Protein 6.4 g/dl (6.4-8.2) 02/12/19 07:50 Albumin 2.9 g/dl (3.4-5.0) L 02/12/19 07:50 RPR Titer Nonreactive (NONREACTIVE) 02/12/19 07:50 lab noted low Ca++ 02/12/19 15:09 Assessment: 02/12/19 15:11 withdrawal sx 02/12/19 15:11 hypocalcemia Plan: continue detox calcium supplement
[2019-02-12] MEDS: CALCIUM 250MG/VIT-D 125 UNITS 1 COMBO TABLET PO SCH ×2 (15:48→22:11)
[2019-02-12] MEDS ORDERED: QUEtiapine FUMARATE 100 MG TABLET (FP) PO SCH (22:00)
[2019-02-12] MEDS: METHOCARBAMOL 500 MG TABLET PO PRN (22:10)
[2019-02-12] MEDS: THIAMINE HCL 100 MG TABLET (FP) PO SCH (22:11)
[2019-02-12] MEDS: chlordiazePOXIDE 5 MG CAPSULE PO SCH (22:11)
[2019-02-13] MEDS: chlordiazePOXIDE 5 MG CAPSULE PO SCH (05:20)
[2019-02-13 09:23] VITALS: BP 113/83; PULSE 107; TEMP 96.1
[2019-02-13] MEDS ORDERED: METHADONE HCL 10 MG TABLET (FOR DETOX USE ONLY) PO ONE (10:00)
[2019-02-13] MEDS: NICOTINE 7 MG/24 HOURS TOPICAL PATCH TD SCH (10:24)
[2019-02-13] MEDS: CALCIUM 250MG/VIT-D 125 UNITS 1 COMBO TABLET PO SCH (10:24)
[2019-02-13] MEDS: PRENATAL VITAMINS W/ FOLIC ACID TABLET (FP) PO SCH (10:25)
--- NOTE | 2019-02-13 16:27 | DS ---
[facility] Detox Discharge Summary Admission Date: 02/11/19 Discharge Date: 02/13/19 - History Present History: Alcohol Dependence, Opioid Dependence Additional Comments: 53 years old female admitted on 02/11/19 for alcohol and opiate withdrawal stabilization patient preferring to go home today that her in on 6N and apartment gold can not be found patient will completed detox regimen tomorrow on 02/14/19 could cali routine discharge for today the nurse is concern that the patient has alcohol and opiate withdrawal sx should be against medical advice discharge in respect feedback of the nurse that the patient sign AMA and understand the consequences of AMA - Physical Exam Results Vital Signs: Vital Signs Temperature 96.1 F L 02/13/19 09:22 Pulse Rate 107 H 02/13/19 09:22 Respiratory Rate 18 02/13/19 09:22 Blood Pressure 113/83 02/13/19 09:22 O2 Sat by Pulse Oximetry (%) Pertinent Admission Physical Exam Findings: alcohol and opiate withdrawal sx Laboratory Last Values WBC 11.0 K/mm3 (4.0-10.0) H 02/12/19 07:50 RBC 3.96 M/mm3 (3.60-5.2) 02/12/19 07:50 Hgb 12.2 GM/dL (10.7-15.3) 02/12/19 07:50 Hct 37.1 % (32.4-45.2) 02/12/19 07:50 MCV 93.7 fl (80-96) 02/12/19 07:50 MCH 30.9 pg (25.7-33.7) 02/12/19 07:50 MCHC 33.0 g/dl (32.0-36.0) 02/12/19 07:50 RDW 13.0 % (11.6-15.6) D 02/12/19 07:50 Plt Count 247 K/MM3 (134-434) 02/12/19 07:50 MPV 8.8 fl (7.5-11.1) 02/12/19 07:50 Sodium 143 mmol/L (136-145) 02/12/19 07:50 Potassium 3.5 mmol/L (3.5-5.1) 02/12/19 07:50 Chloride 111 mmol/L (98-107) H 02/12/19 07:50 Carbon Dioxide 23 mmol/L (21-32) 02/12/19 07:50 Anion Gap 9 MMOL/L (8-16) 02/12/19 07:50 BUN 23 mg/dL (7-18) H 02/12/19 07:50 Creatinine 1.3 mg/dL (0.55-1.3) 02/12/19 07:50 Creat Clearance w eGFR 42.85 (>60) 02/12/19 07:50 Random Glucose 87 mg/dL (74-106) 02/12/19 07:50 Calcium 7.7 mg/dL (8.5-10.1) L 02/12/19 07:50 Total Bilirubin 0.2 mg/dL (0.2-1) 02/12/19 07:50 AST 22 U/L (15-37) 02/12/19 07:50 ALT 26 U/L (13-61) 02/12/19 07:50 Alkaline Phosphatase 149 U/L (45-117) H 02/12/19 07:50 Total Protein 6.4 g/dl (6.4-8.2) 02/12/19 07:50 Albumin 2.9 g/dl (3.4-5.0) L 02/12/19 07:50 RPR Titer Nonreactive (NONREACTIVE) 02/12/19 07:50 lab noted - Treatment Hospital Course: Detox Protocol Followed, Responded well Patient has Accepted a Rehab Referral to: [facility] - Medication Discharge Medications: Ambulatory Orders Quetiapine Fumarate [Seroquel -] 50 mg PO BID 07/12/17 - Diagnosis (1) Alcohol dependence, uncomplicated Status: Acute (2) Opioid dependence with withdrawal Status: Acute (3) Substance induced mood disorder Status: Suspected (4) Hepatitis C Status: Chronic Qualifiers: Viral hepatitis chronicity: carrier Qualified Code(s): B18.2 - Chronic viral hepatitis C (5) Nicotine dependence Status: Acute Qualifiers: Nicotine product type: cigarettes Substance use status: in withdrawal Qualified Code(s): F17.213 - Nicotine dependence, cigarettes, with withdrawal - AMA Did Patient Leave Against Medical Advice: Yes
[2019-02-13] MEDS ORDERED: chlordiazePOXIDE HCL 10 MG CAPSULE PO PRN (21:00)
[2019-02-13] MEDS ORDERED: chlordiazePOXIDE HCL 10 MG CAPSULE PO SCH (21:00)
[2019-02-14] MEDS ORDERED: METHADONE HCL 5 MG TABLET (FOR DETOX USE ONLY) PO ONE (06:00)
== END 2019-02-13 13:26 | disposition left against medical advice (07) | DRG 894 ==
LOC: YASAS 14:26 → Y3N 16:33
PROVIDERS: ADMIT Surgery; ATTEND Surgery
PROC: HZ2ZZZZ Detoxification Services for Substance Abuse Treatment (ICD-10-PCS; principal; 2019-02-11)
DX: F11.23 Opioid dependence with withdrawal (principal); F19.282 Other psychoactive substance dependence with psychoactive substance-induced sleep disorder; F10.230 Alcohol dependence with withdrawal, uncomplicated; F17.213 Nicotine dependence, cigarettes, with withdrawal; F19.24 Other psychoactive substance dependence with psychoactive substance-induced mood disorder; F32.9 Major depressive disorder, single episode, unspecified; F43.10 Post-traumatic stress disorder, unspecified; B18.2 Chronic viral hepatitis C; E83.51 Hypocalcemia; E66.9 Obesity, unspecified; R26.2 Difficulty in walking, not elsewhere classified; Z68.33 Body mass index [BMI] 33.0-33.9, adult; Z86.69 Personal history of other diseases of the nervous system and sense organs
CPT/HCPCS: 36415; 80053; 85027; 86593